=== PATIENT | male | born 1940 | race Caucasian/White ===

== ENCOUNTER → 2017-08-07 | Outpatient (CLI) | payer MEDICARE, OTHER | LOC: MC.RAD 10:00 → EDSEX 10:06 | DX: Z12.31 Encounter for screening mammogram for malignant neoplasm of breast (principal); Z98.890 Other specified postprocedural states; Z87.898 Personal history of other specified conditions ==

== ENCOUNTER → 2017-12-01 | Outpatient (CLI) | payer MEDICARE, OTHER | LOC: MHCPAIN 13:34 | DX: G89.29 Other chronic pain (principal); M54.12 Radiculopathy, cervical region; M47.812 Spondylosis without myelopathy or radiculopathy, cervical region | CPT/HCPCS: G0463 ==

== ENCOUNTER → 2017-12-24 | Outpatient (CLI) | payer MEDICARE, OTHER | LOC: SUN.DIA 09:38 | DX: E11.9 Type 2 diabetes mellitus without complications (principal); E03.9 Hypothyroidism, unspecified | CPT/HCPCS: G0108 ==

== ENCOUNTER → 2018-01-26 | Outpatient (CLI) | payer MEDICARE, OTHER | LOC: SUN.DIA 13:37 | DX: R73.03 Prediabetes (principal); G62.9 Polyneuropathy, unspecified; E78.5 Hyperlipidemia, unspecified; I10 Essential (primary) hypertension; E66.9 Obesity, unspecified ==

== ENCOUNTER → 2018-03-30 | Outpatient (CLI) | payer MEDICARE, OTHER | LOC: SUN.DIA 12:44 | DX: R73.03 Prediabetes (principal); G62.9 Polyneuropathy, unspecified; E78.5 Hyperlipidemia, unspecified; I10 Essential (primary) hypertension; E66.9 Obesity, unspecified ==

== ENCOUNTER → 2018-09-08 | Outpatient (CLI) | payer MEDICARE, OTHER | LOC: COL.RAD 08-30 14:00 | DX: M47.816 Spondylosis without myelopathy or radiculopathy, lumbar region (principal); M48.061 Spinal stenosis, lumbar region without neurogenic claudication; M51.36 Other intervertebral disc degeneration, lumbar region ==

== ENCOUNTER → 2018-09-29 | Outpatient (CLI) | payer MEDICARE, OTHER | LOC: MHCPAIN 09:26 | DX: G89.29 Other chronic pain (principal); M47.817 Spondylosis without myelopathy or radiculopathy, lumbosacral region; M53.3 Sacrococcygeal disorders, not elsewhere classified | CPT/HCPCS: G0463 ==

== ENCOUNTER → 2018-12-22 | Outpatient (CLI) | payer MEDICARE, OTHER | LOC: COL.VAS 08:00 | DX: R26.81 Unsteadiness on feet (principal) ==

== ENCOUNTER 2019-08-15 12:07 | Emergency (ER) | payer MEDICARE ==
[~2019-08-15] VITALS: Ht 172.7 cm; Wt 120.9 kg
[2019-08-15 12:12] VITALS: TEMP 97.2
[2019-08-15 14:15] LABS: COLLECTION METHOD CLEAN CATCH
[2019-08-15 14:42] LABS: MUCOUS Present /lpf; PH 5 (5-8); SQUAMOUS EPITHELIAL 0-2 /hpf; URINE APPEARANCE Clear; URINE BACTERIA Rare /hpf; URINE BILIRUBIN Negative (NEGATIVE); URINE BLOOD Negative (NEGATIVE); URINE COLOR Yellow; URINE GLUCOSE Negative (NEGATIVE); URINE KETONE Negative (NEGATIVE); URINE LEUKOCYTE ESTERASE Negative (NEGATIVE); URINE NITRATE Negative (NEGATIVE); URINE PROTEIN(semi-quant) Negative (NEGATIVE); URINE RBC 0-2 /hpf; URINE UROBILINOGEN Negative (NEGATIVE)
[2019-08-15] MEDS ORDERED: NEURONTIN600 MG/TAB PO (14:45)
[2019-08-15] MEDS ORDERED: ANTIVERT 25MG25 MG PO (14:45)
[2019-08-15] MEDS ORDERED: NORVASC 5MG5 MG/TAB PO (14:46)
[2019-08-15] MEDS ORDERED: LIPITOR 10MG10 MG PO (14:46)
[2019-08-15] MEDS ORDERED: FLOMAX 0.40.4 MG/CAP PO (14:46)
[2019-08-15] MEDS ORDERED: BYSTOLIC10 MG PO (14:46)
[2019-08-15] MEDS ORDERED: MOBIC15 MG PO (14:46)
[2019-08-15 14:54] VITALS: BP 165/80; PULSE 81
== END 2019-08-15 14:55 | disposition home or self-care (01) ==
LOC: COL.ER 12:07
PROVIDERS: Physician Assistant
DX: S30.0XXA Contusion of lower back and pelvis, initial encounter (principal); R42 Dizziness and giddiness; E11.9 Type 2 diabetes mellitus without complications; Z79.84 Long term (current) use of oral hypoglycemic drugs; Z88.2 Allergy status to sulfonamides; W18.30XA Fall on same level, unspecified, initial encounter; W22.09XA Striking against other stationary object, initial encounter; Y93.E1 Activity, personal bathing and showering

== ENCOUNTER → 2019-09-05 | Outpatient (CLI) | payer MEDICARE ==
[~2019-09-05] MED LIST: ANTIVERT 25MG25 MG PO; BYSTOLIC10 MG PO; FLOMAX 0.40.4 MG/CAP PO; LIPITOR 10MG10 MG PO; MOBIC15 MG PO; NEURONTIN600 MG/TAB PO; NORVASC 5MG5 MG/TAB PO
[2019-09-05 09:11] LABS: CREATININE, serum 0.89 (0.66-1.25)
== END ==
LOC: COL.LAB 08:30
DX: Z01.89 Encounter for other specified special examinations (principal)

== ENCOUNTER 2019-11-11 11:00 | Outpatient (RCR) | payer MEDICARE | END 2019-11-28 11:41 | disposition home or self-care (01) | LOC: WSPT 11:00 | DX: H81.11 Benign paroxysmal vertigo, right ear (principal) ==

== ENCOUNTER → 2019-12-13 | Outpatient (CLI) | payer MEDICARE | LOC: COL.RAD 09:30 | DX: H90.3 Sensorineural hearing loss, bilateral (principal) ==

== ENCOUNTER 2021-01-08 18:59 | Observation (INO) | payer MEDICARE ==
[~2021-01-08] VITALS: Ht 172.7 cm; Wt 114.2 kg
[2021-01-08 19:56] LABS: COLLECTION METHOD CLEAN CATCH
[2021-01-08 20:02] LABS: MUCOUS Present /lpf; PH 6 (5-8); SQUAMOUS EPITHELIAL 0-2 /hpf; URINE APPEARANCE Clear; URINE BACTERIA None Seen /hpf; URINE BILIRUBIN Negative (NEGATIVE); URINE BLOOD Negative (NEGATIVE); URINE COLOR Straw; URINE GLUCOSE Negative (NEGATIVE); URINE KETONE Negative (NEGATIVE); URINE LEUKOCYTE ESTERASE Negative (NEGATIVE); URINE NITRATE Negative (NEGATIVE); URINE PROTEIN(semi-quant) Negative (NEGATIVE); URINE RBC 0-2 /hpf; URINE UROBILINOGEN Negative (NEGATIVE)
[2021-01-08 21:17] LABS: BASO # 0.1 K/mm3 (0.0-0.2); BASO % 0.5 % (0.0-2.0); EOS # 0.2 K/mm3 (0.0-0.7); EOS % 1.9 % (0-4.0); GRAN # 9.2 K/mm3 (1.4-6.5); GRAN % 80.2 % (42.2-75.2); HEMATOCRIT 43.2 % (42.0-52.0); HEMOGLOBIN 14.7 g/dl (13.5-18.0); LYMPH # 0.7 K/mm3 (1.2-3.4); LYMPH % 6.5 % (20.0-51.0); MEAN CELL VOLUME 93 fl (80.0-100.0); MEAN CORPUSCULAR HEMOGLOBIN 32 pg (27.0-31.0); MEAN CORPUSCULAR HGB CONC 34 g/dl (33.0-37.0); MONO # 1.2 K/mm3 (0.1-0.6); MONO % 10.5 % (1.7-9.3); PLATELET COUNT 234 K/mm3 (130-400); RED BLOOD COUNT 4.65 M/mm3 (4.20-5.60); REDCELL DISTRIBUTION WIDTH-CV 12.5 % (11.5-14.5)
[2021-01-08 22:07] LABS: ALANINE AMINOTRANSFERASE 23 U/L (0-55); ALBUMIN 4.1 gm/dL (3.4-4.8); ALKALINE PHOSPHATASE 84 U/L (40-150); ANION GAP 10 mmol/L (7-16); AST,SGOT 24 U/L (5-34); BILIRUBIN,TOTAL 0.3 mg/dL (0.2-1.2); BLOOD UREA NITROGEN 21 mg/dL (8-26); CALCIUM 9.6 mg/dL (8.4-10.2); CARBON DIOXIDE 25 mmol/L (23-31); CHLORIDE 104 mmol/L (98-107); CREATININE, serum 1.21 mg/dL (0.72-1.25); GLUCOSE 119 mg/dL (70-99); LIPASE 46 U/L (8-78); POTASSIUM 4.4 mmol/L (3.5-4.5); SODIUM 139 mmol/L (136-145); TOTAL PROTEIN 7.1 gm/dL (6.2-8.1)
[2021-01-08 22:13] LABS: TROPONIN-I < 0.010 ng/mL (0.00-0.033)
[2021-01-09] VITALS (10 sets, daily range): BP systolic 135–169; BP diastolic 57–89; PULSE 59–69; TEMP 97.6–98.3
--- NOTE | 2021-01-09 01:53 | NUR ---
Patient arrived to the unit alert and oriented x 4, hypertensive, denies pain, nausea or vomiting. No guarding while touching the abdomen or left lower side.
[2021-01-09] MEDS ORDERED: MOBIC15 MG PO (02:04)
[2021-01-09] MEDS ORDERED: ZESTRIL 20MG TA20 MG PO (02:06)
[2021-01-09] MEDS ORDERED: GLUCOPHAGE500 MG/TAB PO (02:10)
[2021-01-09] MEDS ORDERED: TOVIAZ8 MG PO (02:14)
[2021-01-09] MEDS ORDERED: VITAMINC1000TA PO (02:19)
[2021-01-09] MEDS ORDERED: SAW PALMETTO500 M1 PO (02:20)
[2021-01-09] MEDS ORDERED: MASON NATURAL1200 MG PO (02:22)
[2021-01-09] MEDS ORDERED: D3-5050000 IU PO (02:24)
[2021-01-09] MEDS ORDERED: ASPIRIN E.C. 8181 MG PO (02:26)
--- NOTE | 2021-01-09 06:19 | NUR ---
Patient has been stable after arrival. No further complains of pain. NS running at 125mls. per hr. No further needs at this time. Shift report will be given to dayshift nurse.
--- NOTE | 2021-01-09 10:42 | NUR ---
LINN met with the patient and his , Jesenia (h.ph#[phone], c.ph#[phone]), to discuss discharge plan. The patient lives in [place] with his . Jesenia reports that the patient is independent with ADLs and does not have any DME. The patient's PCP is Dr. Eda Stone and he receives his medications from [facility]. Jesenia reports no difficulties obtaining his meds. The patient does not have a DPOA-HC in EMR, but Jesenia reports that the patient does have one completed and that it designates her. The patient plans to return home with his upon discharge. No additional needs at this time. *Discharge plan: home with *
--- NOTE | 2021-01-09 13:42 | NUR ---
Initial visit; Patient thanked Fl[facility] [employer]aker for listening and offering God's blessings.
--- NOTE | 2021-01-09 19:00 | NUR ---
RECEIVED CHANGE OF SHIFT REPORT FROM DAY SHIFT NURSE.
--- NOTE | 2021-01-09 19:20 | NUR ---
DENIES CHEST PAIN/SOA/NAUSEA. DENIES PROBLEMS WITH VOIDING, REPORTS SOME RED TINGED URINE. INT TO [facility] REMOVED, PATIENT TO BED DISMISSED TO HOME. SPOUSE AT BEDSIDE.
--- NOTE | 2021-01-09 19:30 | NUR ---
PATIENT DISMISSED OFF UNIT PER W/C, STAFF NURSE TO ESCORT PATIENT OF UNIT. PATIENT'S SPOUSE PRESENT TO TAKE PATIENT HOME PER PRIVATE CAR.
== END 2021-01-09 19:30 | disposition home or self-care (01) ==
LOC: COL.ER 18:59 → SURG 01-09 00:32
PROVIDERS: Emergency Medicine; ADMIT Urology
DX: N20.1 Calculus of ureter (principal); I10 Essential (primary) hypertension; Z79.82 Long term (current) use of aspirin; Z79.899 Other long term (current) drug therapy; G47.33 Obstructive sleep apnea (adult) (pediatric); Z99.89 Dependence on other enabling machines and devices
CPT/HCPCS: C1769; C2617; G0378; J0690; J1100; J1170; J1885; J2270; J2405; J2704; J3010; J7030; Q9967

== ENCOUNTER 2022-04-22 07:15 | Day surgery (SDC) | payer MEDICARE ==
[~2022-04-22] VITALS: Ht 172.7 cm; Wt 115.8 kg
[~2022-04-22 07:15] MED LIST changes: +ASPIRIN E.C. 8181 MG PO; +D3-5050000 IU PO; +GLUCOPHAGE500 MG/TAB PO; +MASON NATURAL1200 MG PO; +SAW PALMETTO500 M1 PO; +TOVIAZ8 MG PO; +VITAMINC1000TA PO; +ZESTRIL 20MG TA20 MG PO
[2022-04-22] MEDS ORDERED: GLUCOPHAGE XR500 M1 PO (08:56)
[2022-04-22] MEDS ORDERED: PROZAC 20MG20 MG PO (08:59)
[2022-04-22] MEDS ORDERED: INDERAL 10MG10 MG PO (09:00)
[2022-04-22] MEDS ORDERED: GEMTESA75 MG PO (09:00)
[2022-04-22] MEDS ORDERED: MYSOLINE 5050 MG/TAB PO (09:02)
[2022-04-22] MEDS ORDERED: ASPIRIN 81M81 MG/TA2 PO (09:03)
[2022-04-22] MEDS ORDERED: CALCIUM-MAGNES1 EAC1 PO (09:06)
[2022-04-22] MEDS ORDERED: PRESERVISION1 SGL PO (09:10)
[2022-04-22] MEDS ORDERED: MULTI VITAMINS1 TAB PO (09:12)
[2022-04-22 10:09] VITALS: BP 114/63; PULSE 57; TEMP 97.3
[2022-04-22 10:25] VITALS: BP 134/64; PULSE 58
[2022-04-22 10:40] VITALS: BP 121/63; PULSE 59
[2022-04-22 10:55] VITALS: BP 124/63; PULSE 63
[2022-04-22 11:10] VITALS: BP 128/60; PULSE 59
--- NOTE | 2022-04-22 12:47 | NUR ---
1009 PT [place] [facility] [place] S/P CYSTOSCOPY WITH BOTOX INJECTION, SLEEPY, RESPONDS TO VOICE, PLACED ON O2 AND MONITOR. REPORT FROM YOCASTA, RECEIVED CARE OF PT.
[2022-04-22 12:51] VITALS: BP 145/64; PULSE 63; TEMP 98.5
== END 2022-04-22 11:20 | disposition home or self-care (01) ==
LOC: SDCO 07:15
DX: N40.1 Benign prostatic hyperplasia with lower urinary tract symptoms (principal); N39.41 Urge incontinence; R35.0 Frequency of micturition; G47.33 Obstructive sleep apnea (adult) (pediatric)
CPT/HCPCS: A4215; J0585; J0690; J2704; J7120

== ENCOUNTER → 2023-03-11 | Outpatient (CLI) | payer MEDICARE ==
[~2023-03-11] MED LIST changes: +ASPIRIN 81M81 MG/TA2 PO; +CALCIUM-MAGNES1 EAC1 PO; +GEMTESA75 MG PO; +GLUCOPHAGE XR500 M1 PO; +INDERAL 10MG10 MG PO; +MULTI VITAMINS1 TAB PO; +MYSOLINE 5050 MG/TAB PO; +PRESERVISION1 SGL PO; +PROZAC 20MG20 MG PO
== END ==
LOC: COL.RAD 09:01
DX: H90.3 Sensorineural hearing loss, bilateral (principal); Z96.21 Cochlear implant status